=== PATIENT | male | born 2000 | race African-American/Black ===

== ENCOUNTER 2020-04-15 09:37 | Emergency (ER) | payer MEDICAID, OTHER ==
[~2020-04-15] VITALS: Ht 188 cm; Wt 136.1 kg
[2020-04-15 09:50] VITALS: BP 135/90
--- NOTE | 2020-04-15 09:50 | NUR ---
ED Nurse Note: PT walked in from home, walks with a steady gait, breathing is even and unlabored, resting comfortably no signs of distress noted. He explained hes been feeling nauseaus for 2x days but has not vomited. he said he has been feeling anxious dt COVID and heis afraid of getting his older family membrs taht he lives with at home sick. Line place and labs sent.
--- NOTE | 2020-04-15 09:56 | Emergency Room Report ---
History of Present Illness General Chief Complaint: Abdominal Pain Source: Patient Present Illness HPI Patient is a 19-year-old male denies any significant past medical history who presents to the ER complaining of lower abdominal pain, cramping, nausea and nonbloody diarrhea for the past 3 to 5 days. He denies any fever or chills. She denies any chest pain or shortness of breath. He denies any cough. He denies any dysuria or hematuria. He states that he is concerned that he has Covid. He is requesting a COVID-19 test. I explained to him that we can do outpatient testing and will have his results with an 24 to 48 hours. Patient denies any recent travel. He denies any sick contacts at home. 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 Patient History Reviewed Nursing Documentation: PMH: Agreed; PSxH: Agreed Nursing Documentation-PMH Past Medical History: No Stated History Review of Systems All Other Systems: negative except mentioned in HPI Physical Exam Vital Signs Date Time Temp Pulse Resp B/P (MAP) Pulse Ox O2 Delivery O2 Flow Rate FiO2 04/15/20 09:38 98.1 79 18 148/86 (106) 95 Room Air Sp02 EP Interpretation: reviewed, normal General Appearance: no apparent distress, alert, GCS 15, non-toxic Head: normocephalic, atraumatic Eyes: bilateral eye normal inspection, bilateral eye PERRL ENT: hearing grossly normal, normal pharynx, no angioedema, normal voice Neck: full range of motion, supple/symm/no masses Respiratory: chest non-tender, lungs clear, normal breath sounds, speaking full sentences Cardiovascular #1: regular rate, rhythm, no edema Gastrointestinal: soft, non-distended, no guarding, no rebound, other - Mild diffuse abdominal tenderness, overweight Rectal: deferred Genitourinary: no CVA tenderness Musculoskeletal: normal range of motion Neurologic: torts law professor III-XII nml as tested, oriented x3 Psychiatric: no suicidal/homicidal ideation Skin: no rash Lymphatic: no adenopathy Medical Decision Making Diagnostic Impression: Primary Impression: Diarrhea Additional Impression: UTI (urinary tract infection) ER Course Patient is UA demonstrates evidence for UTI. Patient has white blood cell count of 11,000. Due to patient's age we will treat for UTI as well as STDs. Patient given Rocephin and oral azithromycin. Patient CT demonstrates no acute abdominal or pelvic pathology. Patient has been hydrated with IV fluids. Patient's COVID-19 PCR has been sent and is pending. Patient advised to self quarantine until his results become available. I have also given him discharge instructions on self quarantine as well as strict return precautions. After discussing risks and benefits of further diagnostics, treatment plans, as well as indications for and risks of admission, the patient is agreeable to being discharged home. I have explained that their evaluation and treatment in the emergency department today is an important step towards them achieving better health but that their evaluation today is not intended to replace further evaluation and treatment by a physician in their local clinic. I have explained that while the current findings suggest no immediate life threatening emergency they will require further evaluation and treatment by a physician of their choice in their area. They understand that it will be necessary for them to review the final reports of their ED visit with their clinic physician. We have reviewed indications for return to the Emergency Department. I have explained that additional time may need to pass and/or additional testing as an outpatient may be necessary before a definitive diagnosis can be made. They tell me they are willing to follow up as instructed within the timeframe I recommend. They appear to understand what we discussed. Additionally they understand that if they are unable to be seen by an outpatient physician they are welcome, and in fact should, return to the Emergency Department for a repeat evaluation. The patient is stable at time of discharge. Laboratory Tests Test 04/15/20 10:00 White Blood Count 11.7 K/UL (4.8-10.8) H Red Blood Count 5.24 M/UL (4.70-6.10) Hemoglobin 16.1 G/DL (14.2-18.0) Hematocrit 46.3 % (42.0-52.0) Mean Corpuscular Volume 88 FL (80-99) Mean Corpuscular Hemoglobin 30.8 PG (27.0-31.0) Mean Corpuscular Hemoglobin Concent 34.8 G/DL (32.0-36.0) Red Cell Distribution Width 11.9 % (11.6-14.8) Platelet Count 251 K/UL (150-450) Mean Platelet Volume 8.1 FL (6.5-10.1) Neutrophils (%) (Auto) 61.8 % (45.0-75.0) Lymphocytes (%) (Auto) 28.9 % (20.0-45.0) Monocytes (%) (Auto) 7.0 % (1.0-10.0) Eosinophils (%) (Auto) 1.3 % (0.0-3.0) Basophils (%) (Auto) 1.1 % (0.0-2.0) Urine Color Yellow Urine Appearance Clear Urine pH 5 (4.5-8.0) Urine Specific [place] 1.020 (1.005-1.035) Urine Protein 1+ (NEGATIVE) H Urine Glucose (UA) Negative (NEGATIVE) Urine Ketones 1+ (NEGATIVE) H Urine Blood 2+ (NEGATIVE) H Urine Nitrite Negative (NEGATIVE) Urine Bilirubin Negative (NEGATIVE) Urine Urobilinogen 1 MG/DL (0.0-1.0) H Urine Leukocyte Esterase 1+ (NEGATIVE) H Urine RBC 2-4 /HPF (0 - 0) H Urine WBC 10-15 /HPF (0 - 0) H Urine Squamous Epithelial Cells Occasional /LPF Urine Bacteria Few /HPF (NONE) Urine Mucus Moderate /LPF (NONE/OCC) H Sodium Level 140 MMOL/L (136-145) Potassium Level 3.5 MMOL/L (3.5-5.1) Chloride Level 103 MMOL/L (98-107) Carbon Dioxide Level 28 MMOL/L (21-32) Anion Gap 9 mmol/L (5-15) Blood Urea Nitrogen 13 mg/dL (7-18) Creatinine 1.1 MG/DL (0.55-1.30) Estimated Glomerular Filtration Rate > 60 mL/min (>60) Glucose Level 104 MG/DL (74-106) Calcium Level 8.9 MG/DL (8.5-10.1) Magnesium Level 1.8 MG/DL (1.8-2.4) Total Bilirubin 0.7 MG/DL (0.2-1.0) Aspartate Amino Transferase (AST) 19 U/L (15-37) Alanine Aminotransferase (ALT) 24 U/L (12-78) Alkaline Phosphatase 81 U/L (46-116) Total Protein 8.4 G/DL (6.4-8.2) H Albumin 4.3 G/DL (3.4-5.0) Globulin 4.1 g/dL Albumin/Globulin Ratio 1.0 (1.0-2.7) Lipase 96 U/L (73-393) Urine Opiates Screen Negative (NEGATIVE) Urine Barbiturates Screen Negative (NEGATIVE) Phencyclidine (PCP) Screen Negative (NEGATIVE) Urine Amphetamines Screen Negative (NEGATIVE) Urine Benzodiazepines Screen Negative (NEGATIVE) Urine Cocaine Screen Negative (NEGATIVE) Urine Marijuana (THC) Screen Positive (NEGATIVE) H Last Vital Signs Date Time Temp Pulse Resp B/P (MAP) Pulse Ox O2 Delivery O2 Flow Rate FiO2 04/15/20 09:38 98.1 79 18 148/86 (106) 95 Room Air Disposition: HOME, SELF-CARE Condition: Stable Scripts Ondansetron* (ZOFRAN*) 4 Mg Tablet 4 MG ORAL Q6H PRN for Nausea & Vomiting, #14 TAB Prov: Ellie Rainey M.D. 04/15/20 Ciprofloxacin Hcl* (CIPROFLOXACIN HCL*) 500 Mg Tablet 500 MG ORAL Q12H, #20 TAB 0 Refills Prov: Ellie Rainey M.D. 04/15/20 Additional Instructions: The patient was provided with discharge instructions, notified to follow-up with a primary care doctor and or specialist in the next 24-48 hours, and to return to the ED if they have worsening of their symptoms. Please note that this report is being documented using iLost technology. This can lead to erroneous entry secondary to incorrect interpretation by the dictating instrument. Ellie Rainey M.D. Apr 15, 2020 09:56
[2020-04-15 10:15] LABS: APPEARANCE,URINE CLEAR; BASOPHILS % (AUTO) 1.1 % (0.0-2.0); BILIRUBIN, URINE NEGATIVE (NEGATIVE); EOSINOPHILS % (AUTO) 1.3 % (0.0-3.0); GLUCOSE, URINE (UA) NEGATIVE (NEGATIVE); HEMATOCRIT 46.3 % (42.0-52.0); HEMOGLOBIN 16.1 G/DL (14.2-18.0); KETONES,URINE 1+ (NEGATIVE); LEUKOCYTE ESTERASE ,URINE 1+ (NEGATIVE); LYMPHOCYTES % (AUTO) 28.9 % (20.0-45.0); MEAN CORPUSCULAR VOLUME 88 FL (80-99); NEUTROPHILS % (AUTO) 61.8 % (45.0-75.0); NITRITE,URINE NEGATIVE (NEGATIVE); PH,URINE 5 (4.5-8.0); PLATELET COUNT 251 K/UL (150-450); PROTEIN,URINE 1+ (NEGATIVE); RED BLOOD COUNT 5.24 M/UL (4.70-6.10); RED CELL DISTRIBUTION WIDTH 11.9 % (11.6-14.8); UROBILINOGEN,URINE 1 MG/DL (0.0-1.0); WHITE BLOOD COUNT 11.7 K/UL (4.8-10.8)
[2020-04-15 10:36] LABS: COLOR,URINE YELLOW
[2020-04-15 10:46] LABS: ALANINE AMINOTRANSFERASE 24 U/L (12-78); ALBUMIN 4.3 G/DL (3.4-5.0); ALKALINE PHOSPHATASE 81 U/L (46-116); ANION GAP 9 mmol/L (5-15); ASPARTATE AMINO TRANSFERASE 19 U/L (15-37); BILIRUBIN,TOTAL 0.7 MG/DL (0.2-1.0); BLOOD UREA NITROGEN 13 mg/dL (7-18); CALCIUM 8.9 MG/DL (8.5-10.1); CARBON DIOXIDE 28 MMOL/L (21-32); CHLORIDE 103 MMOL/L (98-107); CREATININE 1.1 MG/DL (0.55-1.30); POTASSIUM 3.5 MMOL/L (3.5-5.1); SODIUM 140 MMOL/L (136-145)
--- NOTE | 2020-04-15 10:48 | NUR ---
ED Nurse Note: Pt left for CT
[2020-04-15] MEDS ORDERED: cefTRIAXone 1 GM in NS 55 ML IVPB ONE (11:00)
[2020-04-15] MEDS ORDERED: Azithromycin 250mg tab ORAL ONE (11:00)
--- NOTE | 2020-04-15 11:00 | NUR ---
ED Nurse Note: pt back from CT. No acute distress noted
--- NOTE | 2020-04-15 11:13 | Diagnostic Imaging Report ---
EXAM: CT CT Abdomen Pelvis WO Contrast INDICATION: Abdominal pain. Diarrhea. COMPARISON: None TECHNIQUE: Axial images were obtained through the abdomen pelvis without intravenous contrast. Sagittal and coronal reformats are generated. All CT scans at this facility are performed using dose modulation techniques as appropriate to a performed exam including the following: automated exposure control with adjustment of the mA and/or kV according to patient size. RADIATION DOSE: CTDIvol: 20.3 mGy DLP: 1196 mGy-cm Dose information generated by the CT scanner is available in PACS. FINDINGS: The lung bases are clear. The liver is diffusely fatty with some fatty sparing near the gallbladder fossa. Spleen is homogeneous. Gallbladder is without sludge or stone and there is no wall thickening. The pancreas is unremarkable. Adrenals are normal in morphology. The kidneys are normal in size, shape and axis. Small bowel loops are nondistended. The colon is also nondistended with average amount of stool. The appendix is normal. There is no free fluid or free air. No pathologic adenopathy demonstrated. Urinary bladder appears unremarkable. There is no suspicious superficial soft tissue or osseous abnormality. IMPRESSION: FATTY LIVER. NO SIGN OF ACUTE DISEASE.
[2020-04-15] MEDS ORDERED: CIPROFLOXACIN500 M2 ORAL (11:59)
[2020-04-15] MEDS ORDERED: ZOFRAN4 M3 ORAL (11:59)
[2020-04-15 12:15] VITALS: BP 125/80
--- NOTE | 2020-04-15 17:26 | NUR ---
ER DISCHARGE NOTE: Patient is cleared to be discharged per ERMD, pt is aox4, on room air, with stable vital signs. pt was given dc and prescription instructions, pt was able to verbalize understanding, pt id band and iv site removed without complications. pt is able to ambulate with steady gait. pt took all belongings.
== END 2020-04-15 12:15 | disposition home or self-care (01) ==
LOC: EMR 09:50
DX: N39.0 Urinary tract infection, site not specified (principal); R19.7 Diarrhea, unspecified; E66.3 Overweight; Z68.38 Body mass index [BMI] 38.0-38.9, adult; K76.0 Fatty (change of) liver, not elsewhere classified
CPT/HCPCS: 36415; 74176; 80053; 80307; 81003; 83690; 83735; 85025; 87086; 96361; 96365; 96375; J0696; J2405; J7030; Q0144; U0004; Z7502; 99284

== ENCOUNTER 2020-06-28 17:18 | Emergency (ER) | payer MEDICAID ==
[~2020-06-28] VITALS: Ht 188 cm; Wt 136.1 kg
[~2020-06-28 17:18] MED LIST: CIPROFLOXACIN500 M2 ORAL; ZOFRAN4 M3 ORAL
[2020-06-28] MEDS ORDERED: ANUSOL-HC25 MG RECTAL (17:40)
[2020-06-28] MEDS ORDERED: COLACE100 MG ORAL (17:40)
[2020-06-28 17:52] VITALS: BP 147/86
--- NOTE | 2020-06-28 17:55 | NUR ---
ER DISCHARGE NOTE: Patient is cleared to be discharged per ERMD, pt is aox4, on room air, with stable vital signs. pt was given dc and prescription instructions, pt was able to verbalize understanding, pt id band removed . pt is able to ambulate with steady gait. pt took all belongings.
--- NOTE | 2020-06-28 17:59 | NUR ---
ED Nurse Note: pt arrived to ER for blood when he wipes for past 3 days. pt states hard stool 3 days ago with straining and then blood when wiping. pt denies abd pain, nausea. MD hargrove and pt has hemorrhoids present. pt verbalizes understanding.
[2020-06-28 18:00] VITALS: BP 155/83
--- NOTE | 2020-06-29 19:48 | Emergency Room Report ---
History of Present Illness General Chief Complaint: Gastrointestinal Bleed Source: Patient Present Illness HPI 20-year-old male presents for evaluation. States that he noticed blood in his stool x1 day. States that he has been having large bowel movements and after that he developed blood in his stool when he wipes. States his stools are hard. Denies pain. Denies nausea or vomiting. No other aggravating or relieving factors. Denies any other associated symptoms Allergies: Coded Allergies: No Known Allergies (Unverified , 08/23/13) COVID-19 Screening Contact w/high risk pt: No Experienced COVID-19 symptoms?: No COVID-19 Testing performed CONTROL PANEL OPERATOR CRUDE UNIT: No Patient History Past Medical History: none Past Surgical History: none Pertinent Family History: none Social History: Denies: smoking, alcohol use, drug use Immunizations: UTD Reviewed Nursing Documentation: PMH: Agreed; PSxH: Agreed Nursing Documentation-PMH Past Medical History: No Stated History Review of Systems All Other Systems: negative except mentioned in HPI Physical Exam Vital Signs Date Time Temp Pulse Resp B/P (MAP) Pulse Ox O2 Delivery O2 Flow Rate FiO2 06/28/20 17:33 97.9 82 20 165/83 (110) 100 Room Air 06/28/20 17:52 100 Sp02 EP Interpretation: reviewed, normal General Appearance: no apparent distress, alert, GCS 15, non-toxic Head: normocephalic, atraumatic Eyes: bilateral eye normal inspection, bilateral eye PERRL ENT: hearing grossly normal, normal pharynx, no angioedema, normal voice Neck: full range of motion, supple/symm/no masses Respiratory: chest non-tender, lungs clear, normal breath sounds, speaking full sentences Cardiovascular #1: regular rate, rhythm, no edema Cardiovascular #2: 2+ carotid (R), 2+ carotid (L), 2+ radial (R), 2+ radial (L), 2+ dorsalis pedis (R), 2+ dorsalis pedis (L) Gastrointestinal: normal bowel sounds, non tender, soft, non-distended, no guarding, no rebound Rectal: hemorrhoids Genitourinary: normal inspection, no CVA tenderness Musculoskeletal: back normal, normal range of motion, gait/station normal, non- tender Neurologic: alert, motor strength/tone normal, oriented x3, sensory intact, responsive, speech normal Psychiatric: judgement/insight normal, memory normal, mood/affect normal, no suicidal/homicidal ideation Reflexes: 3+ bicep (R), 3+ bicep (L), 3+ tricep (R), 3+ tricep (L), 3+ knee (R), 3+ knee (L) Skin: no rash Lymphatic: no adenopathy Medical Decision Making Diagnostic Impression: Primary Impression: Hemorrhoids Qualified Codes: K64.9 - Unspecified hemorrhoids ER Course Hospital Course 20-year-old male presenting to ED complaining of rectal bleeding, Differential diagnoses include: internal hemorrhoids, external hemorrhoids, anal fissure, constipation Clinical course Patient placed on stretcher in ED. After initial history physical exam reveals a young male in no acute distress. Upon rectal exam there is good rectal tone no gross blood. Discussed with patient. Consistent with hemorrhoids and constipation. Will discharge with suppository and stool softeners. Recommend dietary changes. Safe for discharge with close outpatient follow-up Diagnosis - hemorrhoids Stable and discharged to home with prescription for Anusol suppository, Colace. Patient instructed to followup with PMD. Patient instructed to return to ED if symptoms recur or worsen Last Vital Signs Date Time Temp Pulse Resp B/P (MAP) Pulse Ox O2 Delivery O2 Flow Rate FiO2 06/28/20 18:00 75 18 155/83 100 Room Air 06/28/20 17:52 100 06/28/20 17:33 97.9 Status: improved Disposition: HOME, SELF-CARE Condition: Stable Scripts Docusate Sodium* (COLACE*) 100 Mg Capsule 100 MG ORAL TWICE A DAY, #30 CAP Prov: Ramon Hall MD 06/28/20 Hydrocortisone Acetate* (ANUSOL-HC*) 25 Mg Supp.rect 1 SUPP RECTAL TWICE A DAY, #10 SUPP Prov: Ramon Hall MD 06/28/20 Referrals: NOT CHOSEN IPA/,REFERRING (PCP) [facility] Patient Instructions: Hemorrhoids, Aaud-bb-Eyyo Ramon Hall MD Jun 29, 2020 19:48
== END 2020-06-28 18:00 | disposition home or self-care (01) ==
LOC: EMR 17:40
DX: K64.9 Unspecified hemorrhoids (principal); K59.00 Constipation, unspecified
CPT/HCPCS: 99282